=== PATIENT | female | born 1935 | race African-American/Black ===

== ENCOUNTER 2018-03-23 07:07 | Outpatient (CLI) | payer OTHER ==
[~2018-03-23 07:07] MED LIST: AMLODIPINE BES2.5 MG PO; CIPRO250 MG PO; COUMADIN4 MG PO; HYDROCHLOROTHIA25 MG PO; VASOTEC2.5 MG PO; VYTORIN 10-20 M1 TAB PO
== END 2018-03-23 07:13 | disposition home or self-care (01) ==
LOC: MAMO-SONO 07:07
DX: D24.1 Benign neoplasm of right breast (principal)

== ENCOUNTER 2018-10-05 08:08 | Outpatient (CLI) | payer OTHER | END 2018-10-05 08:11 | disposition home or self-care (01) | LOC: MAMO-SONO 08:08 | DX: Z12.31 Encounter for screening mammogram for malignant neoplasm of breast (principal); Z87.898 Personal history of other specified conditions; D24.1 Benign neoplasm of right breast ==

== ENCOUNTER 2018-11-30 09:04 | Emergency (ER) | payer OTHER ==
[~2018-11-30] VITALS: Ht 157.5 cm; Wt 97.1 kg
[2018-11-30] MEDS ORDERED: TOPROL XL50 MG PO (14:20)
== END 2018-11-30 14:47 | disposition home or self-care (01) ==
LOC: ER 09:04 → CPU-OBS 09:05 → ER 09:05
DX: I48.91 Unspecified atrial fibrillation (principal); R07.89 Other chest pain

== ENCOUNTER 2019-09-02 11:33 | Emergency (ER) | payer OTHER ==
[~2019-09-02] VITALS: Ht 162.6 cm; Wt 99.8 kg
[~2019-09-02 11:33] MED LIST changes: +TOPROL XL50 MG PO
== END 2019-09-03 18:35 | disposition home or self-care (01) ==
LOC: ER 11:33
DX: J43.8 Other emphysema (principal); J84.10 Pulmonary fibrosis, unspecified; R00.2 Palpitations; R09.02 Hypoxemia; R06.09 Other forms of dyspnea; R06.02 Shortness of breath; I27.29 Other secondary pulmonary hypertension

== ENCOUNTER 2020-04-05 10:25 | Emergency (ER) | payer OTHER ==
[~2020-04-05] VITALS: Ht 157.5 cm; Wt 90.7 kg
[~2020-04-05 10:25] MED LIST changes: +DOLOGEN CAPLET1 EACH PO; +TUSNEL LIQUID178 ML PO; +XOFLUZA40 MG PO; +ZITHROMAX500 MG PO
== END 2020-04-05 12:19 | disposition home or self-care (01) ==
LOC: ER 10:25
DX: J02.9 Acute pharyngitis, unspecified (principal)

== ENCOUNTER 2020-05-21 08:51 | Outpatient (CLI) | payer OTHER | END 2020-05-21 08:55 | disposition home or self-care (01) | LOC: SONOGRAMA 08:51 | PROVIDERS: ATTEND Pathology Anatomic Pathology | DX: E04.2 Nontoxic multinodular goiter (principal) ==

== ENCOUNTER 2020-06-09 09:20 | Emergency (ER) | payer OTHER ==
[~2020-06-09] VITALS: Ht 162.6 cm; Wt 98.0 kg
[2020-06-09] MEDS ORDERED: SYMBICORT 16010.2 GM IH (16:23)
[2020-06-09] MEDS ORDERED: ZITHROMAX500 MG PO (16:23)
[2020-06-09] MEDS ORDERED: TESSALON PERLE100 MG PO (16:23)
== END 2020-06-09 16:56 | disposition home or self-care (01) ==
LOC: ER 09:20
DX: U07.1 COVID-19 (principal); B34.9 Viral infection, unspecified

== ENCOUNTER 2020-11-29 09:18 | Inpatient (IN) | payer OTHER ==
[~2020-11-29] VITALS: Ht 162.6 cm; Wt 86.2 kg
[~2020-11-29 09:18] MED LIST changes: +SYMBICORT 16010.2 GM IH; +TESSALON PERLE100 MG PO
--- NOTE | 2020-11-29 10:00 | NUR ---
SE RECIBE FEMINA 84 YRS, ALERTA, ORIENTADA EN TIEMPO , LUGAR Y PERSONA. ACOMPANADA DE MARI HIJA REFIERE TENER PALPITACIONES DESDE EL MIERCOLES, FUE A MARI MEDICO PRIMARIO EL VIERNES EL CUAL REFIERE A ER, POR PULSO EN 156, LLEGA HOY CON HIJA SE REALIZA EVALUACION , EKG SE PRESENTA A PRANEETH.MELVINTA, SE UBICA EN AREA DE CHEST PAIN. EN MOMENTO DE RECONSILIACION DE MEDICAMENTOS PTE Y FAMILIAR REFIEREN QUE NO ESTA TOMANDO NINGUNO.PTE REFIERE NO JAMI POR NO TENER REFILL DISPONIBLE. SE NOTIFICA A . SE UBICA EN VIK #17 CON BARNDAS ELEVADAS , SE CONECTA A MONITOR CARDIACO Y OXIMETRIA DE PULSO SE ENTREGA PTE A KIN.
[2020-12-04] MEDS ORDERED: DILTIAZEM HCL30 MG PO (09:42)
[2020-12-04] MEDS ORDERED: DIGOXIN IV (09:42)
[2020-12-04] MEDS ORDERED: ELIQUIS5 MG PO (09:42)
== END 2020-12-04 11:30 | disposition home or self-care (01) | DRG 309 ==
LOC: ER 09:18 → MEDI 12:24
PROVIDERS: ADMIT Internal Medicine; ATTEND Internal Medicine
PROC: B24BZZZ Ultrasonography of Heart with Aorta (ICD-10-PCS; principal; 2020-11-29)
DX: I48.19 Other persistent atrial fibrillation (principal); J44.1 Chronic obstructive pulmonary disease with (acute) exacerbation; J84.10 Pulmonary fibrosis, unspecified; Z20.822 Contact with and (suspected) exposure to COVID-19; I35.8 Other nonrheumatic aortic valve disorders

== ENCOUNTER 2020-12-24 18:12 | Inpatient (IN) | payer OTHER ==
[~2020-12-24] VITALS: Ht 121.9 cm; Wt 5.0 kg
[~2020-12-24 18:12] MED LIST changes: +DIGOXIN IV; +DILTIAZEM HCL30 MG PO; +ELIQUIS5 MG PO
[2020-12-25] MEDS ORDERED: CANDESARTAN-HC1 EACH (08:16)
[2020-12-25] MEDS ORDERED: LEVALBUTEROL TA15 GM (08:16)
[2020-12-25] MEDS ORDERED: DOXAZOSIN MESYLA2 MG (08:16)
[2020-12-25] MEDS ORDERED: OMEPRAZOLE20 MG (08:16)
[2020-12-25] MEDS ORDERED: FUROSEMIDE20 MG (08:16)
[2020-12-25] MEDS ORDERED: SIMVASTATIN20 MG (08:17)
[2020-12-25] MEDS ORDERED: METOPROLOL SUCC25 MG (08:17)
[2020-12-25] MEDS ORDERED: DIGOXIN (08:20)
== END 2020-12-29 17:47 | disposition home or self-care (01) | DRG 310 ==
LOC: ER 18:12 → SEC-K 22:27 → MEDJ 12-25 16:52
PROVIDERS: ADMIT Internal Medicine; ATTEND Internal Medicine
PROC: 4A033R1 Measurement of Arterial Saturation, Peripheral, Percutaneous Approach (ICD-10-PCS; 2020-12-24)
PROC: 4A12X4Z Monitoring of Cardiac Electrical Activity, External Approach (ICD-10-PCS; principal; 2020-12-25)
PROC: B24BZZZ Ultrasonography of Heart with Aorta (ICD-10-PCS; 2020-12-26)
DX: I48.20 Chronic atrial fibrillation, unspecified (principal); I27.20 Pulmonary hypertension, unspecified; J43.9 Emphysema, unspecified; I35.0 Nonrheumatic aortic (valve) stenosis; J84.10 Pulmonary fibrosis, unspecified; Z79.01 Long term (current) use of anticoagulants; Z20.822 Contact with and (suspected) exposure to COVID-19

== ENCOUNTER 2024-05-16 16:35 | Inpatient (IN) | payer OTHER ==
[~2024-05-16] VITALS: Ht 157.5 cm; Wt 69.9 kg
[~2024-05-16 16:35] MED LIST changes: +CANDESARTAN-HC1 EACH; +CARAFATE1 GM PO; +DIGOXIN; +DOXAZOSIN MESYLA2 MG; +FUROSEMIDE20 MG; +FUROSEMIDE20 MG PO; +JARDIANCE10 MG PO; +LANOXIN125 MCG PO; +LEVALBUTEROL TA15 GM; +METOPROLOL SUCC25 MG; +OMEPRAZOLE20 MG; +SIMVASTATIN20 MG; +TOPROL XL25 M1 PO
--- NOTE | 2024-05-16 19:16 | NUR ---
SE RECIBE PACIENTE ALERTA Y ORIENTADA X3. LA MISMA REFIERE HACE ANDRA SEMANA COMENZAR CON FALTA DE AIRE Y HOY NO PODER RESPIRAR. PACIENTE REFIERE NO DOLOR DE PECHO NI OTRO SINTOMA. SE MIDEN S/V PACIENTE OXIGENANDO 91%. SE REALIZA EKG Y SE PRESENTA A PRANEETH. LA MISMA REFIER CONECTARLA A MONITOR CARDIACO.
[2024-05-16] MEDS ORDERED: 0.9 % SODIUM CHLORIDE 1,000 ML IV STA (20:11)
[2024-05-16] MEDS ORDERED: FUROsemide 40 MG/4 ML VIAL IV ONE (20:15)
--- NOTE | 2024-05-16 20:28 | NUR ---
PTE ALERTA Y ORIENTADA X3 SE LE ORIENTA SOBRE TX MEDICO LO CUAL REFIERE ENTENDER Y ACEPTAR. SE LE REALIZAN MUESTRAS DE LAB BAJO MEDIDAS ASEPTICAS. SE LE ADMINISTRA MEDICAMENTOS KEIRA ORDEN MEDICA SE NOTIFICA ESTIDIOS PENDIENTE
[2024-05-16 20:37] LABS: HEMATOCRIT 47.7 % (36.0-45.00); MEAN CELL VOLUME 97.2 fL (80.00-100.00); MEAN CORPUSCULAR HEMOGLOBIN 32.6 pg (27.00-32.0); MEAN CORPUSCULAR HGB CONC 33.5 g/dl (32.0-36.0); RED CELL DISTRIBUTION WIDTH 16.6 % (11.5-14.5)
[2024-05-16 20:42] LABS: PLATELET COUNT 110 K/uL (150-450)
[2024-05-16 21:18] LABS: CREATININE SERUM 0.83 mg/dL (0.55-1.02); GFR 65.03; POTASSIUM 3.76 mEq/L (3.5-5.1)
[2024-05-16 21:21] LABS: INR 1.5; PARTIAL THROMBOPLASTIN TIME 37.8 SECONDS (22.0-34.0)
[2024-05-16 21:55] LABS: ABG pCO2 55.2 mmHg (35-45)
[2024-05-16 21:56] LABS: ABG PO2 55.7 mmHg (80-100); BASE EXCESS 10.3 mmol/l; BICARBONATE 36.7 mmol/l (23-25); SaO2 90.6 %; Tco2 38.4 mmol/l; allen test SATISFACTORY; o2 21 %; puncture site RADIAL RIGHT
[2024-05-16 22:42] LABS: PROTHROMBIN TIME 15.3 SECONDS (9.0-11.5)
[2024-05-16] MEDS ORDERED: NITROGLYCERIN IN 5 % DEXTROSE 250 ML IV SCH (23:39)
[2024-05-16] MEDS ORDERED: ENOXAPARIN SODIUM 60 MG/0.6 ML SYRINGE SUBCUTANEO SCH (23:39)
[2024-05-16] MEDS ORDERED: ACETAMINOPHEN 500 MG GEL..CAP PO PRN (23:45)
[2024-05-17] MEDS ORDERED: IPRATROPIUM BROMIDE 0.5 MG/2.5 ML AMPUL.NEB IH SCH (01:00)
[2024-05-17] MEDS ORDERED: FUROsemide 20 MG/2 ML VIAL IV SCH (01:00)
[2024-05-17 01:37] LABS: PH,URINE 7.5 (5.0-8.0); URINE APPEARANCE Clear; URINE BACTERIA 20.1 uL (0.0-1933); URINE BILIRRUBIN Negative (NEGATIVE); URINE BLOOD Negative; URINE COLOR Yellow; URINE EPITHELIAL CELLS 4.3 uL (0.0-38.8); URINE GLUCOSE Negative (NEGATIVE); URINE LEUKOCYTE Trace; URINE NITRATE Negative; URINE PROTEIN Negative (NEGATIVE); URINE RBC 7.6 uL (0.0-20.8); URINE WBC 19.6 uL (0.0-23.2)
[2024-05-17] MEDS ORDERED: NITROGLYCERIN IN 5 % DEXTROSE 250 ML IV SCH (06:15)
[2024-05-17] MEDS ORDERED: DIGOXIN 0.125 MG TABLET PO SCH (09:00)
[2024-05-17 09:04] LABS: ABG PH 7.434 (7.35-7.45); ABG pCO2 59.2 mmHg (35-45)
[2024-05-17 09:05] LABS: ABG PO2 272.6 mmHg (80-100); BASE EXCESS 11.8 mmol/l; BICARBONATE 38.7 mmol/l (23-25); SaO2 99.9 %; Tco2 40.6 mmol/l
[2024-05-17 09:08] LABS: allen test SATISFACTORY; o2 60 %; puncture site RADIAL RIGHT
[2024-05-18 09:33] LABS: ABG PH 7.406 (7.35-7.45); ABG PO2 273.6 mmHg (80-100); ABG pCO2 63.3 mmHg (35-45); BASE EXCESS 11.3 mmol/l; BICARBONATE 38.9 mmol/l (23-25); SaO2 99.9 %; Tco2 40.9 mmol/l
[2024-05-18 09:34] LABS: allen test SATISFACTORY; o2 60 %; puncture site RADIAL LEFT
[2024-05-18] MEDS ORDERED: METHYLPREDNISOLONE SOD SUCC 40 MG VIAL IV SCH (17:00)
[2024-05-18] MEDS ORDERED: METOPROLOL SUCCINATE 25 MG TAB.SR.24H PO STA (18:12)
[2024-05-18] MEDS ORDERED: METOPROLOL SUCCINATE 25 MG TAB.SR.24H PO SCH ×2 (18:13→19:49)
[2024-05-18] MEDS ORDERED: METOPROLOL SUCCINATE 25 MG TAB.SR.24H PO ONE (18:15)
[2024-05-18] MEDS ORDERED: METOPROLOL TARTRATE 25 MG TABLET PO SCH (19:48)
[2024-05-19] MEDS ORDERED: FUROsemide 20 MG/2 ML VIAL IV SCH (01:00)
[2024-05-19] MEDS ORDERED: FUROsemide 40 MG/4 ML VIAL IV SCH (09:00)
[2024-05-19] MEDS ORDERED: METHYLPREDNISOLONE SOD SUCC 40 MG VIAL IV SCH (17:00)
[2024-05-19] MEDS ORDERED: PHENYLEPHRINE HCL 10 MG/ML AMPUL IV SCH (17:30)
[2024-05-20] MEDS ORDERED: FUROsemide 20 MG/2 ML VIAL IV SCH (17:00)
== END 2024-05-22 17:28 | disposition home or self-care (01) | DRG 291 ==
LOC: ER 16:36 → ICU-2 23:40 → ICU 05-17 13:36 → MEDI 05-20 18:20
PROVIDERS: Emergency Medicine; General Practice; ADMIT Internal Medicine; ATTEND Internal Medicine
PROC: B24BZZZ Ultrasonography of Heart with Aorta (ICD-10-PCS; principal; 2024-05-16)
PROC: 5A09357 Assistance with Respiratory Ventilation, Less than 24 Consecutive Hours, Continuous Positive Airway Pressure (ICD-10-PCS; 2024-05-16)
PROC: BW24YZZ Computerized Tomography (CT Scan) of Chest and Abdomen using Other Contrast (ICD-10-PCS; 2024-05-18)
PROC: B54DZZZ Ultrasonography of Bilateral Lower Extremity Veins (ICD-10-PCS; 2024-05-18)
PROC: 4A12X4Z Monitoring of Cardiac Electrical Activity, External Approach (ICD-10-PCS; 2024-05-20)
DX: I11.0 Hypertensive heart disease with heart failure (principal); I50.33 Acute on chronic diastolic (congestive) heart failure; J96.01 Acute respiratory failure with hypoxia; J96.02 Acute respiratory failure with hypercapnia; N17.9 Acute kidney failure, unspecified; J44.1 Chronic obstructive pulmonary disease with (acute) exacerbation; I48.91 Unspecified atrial fibrillation; J84.10 Pulmonary fibrosis, unspecified; I27.20 Pulmonary hypertension, unspecified; D86.0 Sarcoidosis of lung

== ENCOUNTER 2024-08-25 14:30 | Emergency (ER) | payer OTHER ==
[~2024-08-25] VITALS: Ht 152.4 cm; Wt 63.5 kg
[2024-08-25 18:11] LABS: HEMATOCRIT 43.3 % (36.0-45.00); HEMOGLOBIN 14.4 g/dL (12.0-15.00); MEAN CELL VOLUME 102.4 fL (80.00-100.00); MEAN CORPUSCULAR HGB CONC 33.1 g/dl (32.0-36.0); PLATELET COUNT 158 K/uL (150-450); RED BLOOD COUNT 4.23 M/uL (4.00-6.00)
[2024-08-25 18:34] LABS: ALBUMIN 2.5 gm/dL (3.4-5.0); BILIRUBIN TOTAL 0.98 mg/dL (0.3-1.2); CALCIUM 9.1 mg/dL (8.5-10.1); CREATININE SERUM 0.76 mg/dL (0.55-1.02); GFR 71.99; GLOBULINA 5.2 G/DL (2.4-3.5); POTASSIUM 4.04 mEq/L (3.5-5.1); TOTAL PROTEIN 7.7 gm/dL (6.4-8.2)
[2024-08-25 19:20] LABS: ABG PH 7.408 (7.35-7.45); ABG PO2 59.3 mmHg (80-100); BASE EXCESS 4.9 mmol/l; SaO2 90.9 %
[2024-08-25 19:21] LABS: BICARBONATE 30.8 mmol/l (23-25); Tco2 32.4 mmol/l; allen test SATISFACTORY; o2 21 %; puncture site RADIAL RIGHT
== END 2024-08-25 20:44 | disposition home or self-care (01) ==
LOC: ER 14:31
DX: D86.9 Sarcoidosis, unspecified (principal); Z88.8 Allergy status to other drugs, medicaments and biological substances

== ENCOUNTER 2024-09-14 18:19 | Emergency (ER) | payer OTHER ==
[~2024-09-14] VITALS: Ht 157.5 cm; Wt 58.1 kg
[2024-09-14] MEDS ORDERED: KETOROLAC TROMETHAMINE 15 MG VIAL IM STA (19:55)
== END 2024-09-14 20:14 | disposition home or self-care (01) ==
LOC: ER 18:21
DX: R05.8 Other specified cough (principal); D86.89 Sarcoidosis of other sites; Z88.8 Allergy status to other drugs, medicaments and biological substances; Z20.822 Contact with and (suspected) exposure to COVID-19
CPT/HCPCS: 36415; 96372; 99282; J1885

== ENCOUNTER 2024-09-24 07:54 | Emergency (ER) | payer OTHER ==
[~2024-09-24] VITALS: Ht 152.4 cm; Wt 68.0 kg
[2024-09-24] MEDS ORDERED: KETOROLAC TROMETHAMINE 30 MG VIAL IM STA (09:10)
[2024-09-24 09:57] LABS: CALCIUM 9.5 mg/dL (8.5-10.1); CREATININE SERUM 1.01 mg/dL (0.55-1.02); GFR 51.85; POTASSIUM 4.6 mEq/L (3.5-5.1)
[2024-09-24 10:07] LABS: HEMATOCRIT 48.1 % (36.0-45.00); HEMOGLOBIN 15.7 g/dL (12.0-15.00); MEAN CELL VOLUME 102.9 fL (80.00-100.00); MEAN CORPUSCULAR HEMOGLOBIN 33.6 pg (27.00-32.0); MEAN CORPUSCULAR HGB CONC 32.7 g/dl (32.0-36.0); PLATELET COUNT 134 K/uL (150-450); RED BLOOD COUNT 4.67 M/uL (4.00-6.00); RED CELL DISTRIBUTION WIDTH 15.3 % (11.5-14.5)
[2024-09-24 10:37] LABS: URINE APPEARANCE Cloudy; URINE BILIRRUBIN Negative (NEGATIVE); URINE COLOR Yellow; URINE GLUCOSE Negative (NEGATIVE); URINE KETONE Negative (NEGATIVE); URINE LEUKOCYTE Moderate; URINE NITRATE Negative
[2024-09-24 10:40] LABS: URINE EPITHELIAL CELLS 4.3 uL (0.0-38.8); URINE RBC 24.7 uL (0.0-20.8); URINE WBC 454.3 uL (0.0-23.2)
[2024-09-24 10:49] LABS: URINE BACTERIA > 9821.2 uL (0.0-1933); URINE PROTEIN 100 (NEGATIVE)
[2024-09-24 10:50] LABS: URINE BLOOD TRACES
[2024-09-24] MEDS ORDERED: CEFTRIAXONE SODIUM 1,000 MG VIAL IV STA (10:56)
== END 2024-09-24 11:10 | disposition home or self-care (01) ==
LOC: ER 07:56
PROVIDERS: General Practice
DX: R10.9 Unspecified abdominal pain (principal); D86.89 Sarcoidosis of other sites; I50.9 Heart failure, unspecified; Z88.8 Allergy status to other drugs, medicaments and biological substances
CPT/HCPCS: 36415; 96365; 96372; 99282; J0696; J1885

== ENCOUNTER 2024-10-17 07:27 | Inpatient (IN) | payer OTHER ==
[~2024-10-17] VITALS: Ht 170.2 cm; Wt 81.6 kg
--- NOTE | 2024-10-17 07:50 | NUR ---
SE RECIBE PTE ALERTA Y ORIENTADA ACOMPANADA DE FAMILIAR LA CUAL REFIERE TRAER A PTE POR DIFICULTAD RESPIRATORIA DESDE ANITA Y MOLESTIA AL ORINAR. SE MIDEN S/V A PTE Y SE REALIZA EKG. PTE SE UBICA EN UNIDAD DE CRITICO Y SE CONECTA A MONITOR CARDIACO CON OXIMETRIA.
[2024-10-17] MEDS ORDERED: FUROsemide 40 MG/4 ML VIAL IV STA (08:06)
[2024-10-17] MEDS ORDERED: NITROGLYCERIN 250 ML IV SCH (08:15)
[2024-10-17 08:51] LABS: HEMATOCRIT 49.2 % (36.0-45.00); HEMOGLOBIN 16.4 g/dL (12.0-15.00); MEAN CELL VOLUME 99.9 fL (80.00-100.00); MEAN CORPUSCULAR HEMOGLOBIN 33.3 pg (27.00-32.0); MEAN CORPUSCULAR HGB CONC 33.4 g/dl (32.0-36.0); PLATELET COUNT 132 K/uL (150-450); RED BLOOD COUNT 4.93 M/uL (4.00-6.00); RED CELL DISTRIBUTION WIDTH 15.3 % (11.5-14.5)
--- NOTE | 2024-10-17 08:54 | NUR ---
SE RECIBE PTE EN AREA DE CRITICO #3 SE CONECTA A MONITOR CARDIACO Y OXIMETRIA DE PULSO CONTINUA. SE ORIENTA FAMILIAR Y PTE SOBRE TX MEDICO Y REFIEREN ENTENDER. SE CANALIZA X2 EN BRAZO IZQ, AREA PATENTE Y FAHEEM DE EDEMA. SE COLECTAN MUESTRAS DE LAB BAJO MEDIDAS ASEPTICAS. SE ADMINISTRA MED KEIRA ORDEN MEDICA. SE REALIZA ABG, Y CHEST PORTABLE. SE COLOCA HICKMAN A GRAVEDAD, BAJO MEDIDAS ESTERILES. HIJA DE PACIENTE FIRMA DNI + DNR, SE COLOCA EN EXPEDIENTE CLINICO. PTE BAJO OBSERVACION POR CAMVIOS SIGNIFICATIVOS.
[2024-10-17 09:13] LABS: INR 1.65; PARTIAL THROMBOPLASTIN TIME 33.2 SECONDS (22.0-34.0)
[2024-10-17 09:16] LABS: PROTHROMBIN TIME 17.3 SECONDS (9.0-11.5)
[2024-10-17 09:26] LABS: ALBUMIN 2.5 gm/dL (3.4-5.0); BILIRUBIN TOTAL 1.89 mg/dL (0.3-1.2); CALCIUM 9.2 mg/dL (8.5-10.1); CREATININE SERUM 1.35 mg/dL (0.55-1.02); GFR 37.09; POTASSIUM 4.49 mEq/L (3.5-5.1); TOTAL PROTEIN 7.5 gm/dL (6.4-8.2)
[2024-10-17] MEDS ORDERED: NITROGLYCERIN IN 5 % DEXTROSE 250 ML IV SCH (09:45)
[2024-10-17 09:50] LABS: PH,URINE 5.5 (5.0-8.0); URINE APPEARANCE Cloudy; URINE BACTERIA 331.6 uL (0.0-1933); URINE BILIRRUBIN Small (NEGATIVE); URINE BLOOD Negative; URINE CAST > 21.83 uL (0.0-1.40); URINE COLOR Dark Yellow; URINE EPITHELIAL CELLS 33.8 uL (0.0-38.8); URINE GLUCOSE >=1000 MG/DL (NEGATIVE); URINE KETONE Trace (NEGATIVE); URINE LEUKOCYTE Moderate; URINE NITRATE Negative; URINE PROTEIN 100 (NEGATIVE); URINE RBC 22.8 uL (0.0-20.8); URINE WBC 521.8 uL (0.0-23.2)
--- NOTE | 2024-10-17 13:26 | NUR ---
PACIENTE ES CONSULTADA CON MEDICINA INTERNA CON EL DR. ZAMZAM EUCEDA, AL MOMENTO CONTINUA CON MONITOREO CARDIACO Y TRIDIL 50 MG/250 ML A 2 ML/HR. SE MATIENE BAJO OBSERVACION POR CAMBIOS SIGNIFICATIVOS.
--- NOTE | 2024-10-17 15:20 | NUR ---
SE RECIBE PTE ALERTA Y ORIENTADA X3. EN CAMA BAJA CON BARANDAS ELEVADAS POR SEGURIDAD. CONECTADA A MONITOR CARDIACO Y OXIMETRIA DE PULSO CONTINUA. CANALIZADA X2 EN BRAZO, PATENTES, FAHEEM DE EDEMA Y ERITEMA, RECIBIENDO TRIDIL 50MG/250ML A 2MLS/HR POR ANDRA DE ELLAS. HICKMAN DRENANDO A GRAVEDAD, ORINA AMARILLO INTENSO. PEND CONSULTA
[2024-10-17 17:49] VITALS: BP 98/64
[2024-10-17] MEDS ORDERED: IPRATROPIUM BROMIDE 0.5 MG/2.5 ML AMPUL.NEB IH SCH (17:57)
[2024-10-17] MEDS ORDERED: ENOXAPARIN SODIUM 80 MG/0.8 ML SYRINGE SUBCUTANEO SCH (18:01)
[2024-10-17] MEDS ORDERED: ACETAMINOPHEN 500 MG GEL..CAP PO PRN (18:15)
[2024-10-17] MEDS ORDERED: CEFTRIAXONE SODIUM 2,000 MG in 0.9 % SODIUM CHLORIDE 100 ML IV SCH (18:15)
[2024-10-17] MEDS ORDERED: AZITHROMYCIN 500 MG in DEXTROSE 5 % IN WATER 250 ML IV SCH (18:16)
[2024-10-17 20:16] VITALS: BP 119/90; O2SAT 99
[2024-10-17] MEDS ORDERED: FUROsemide 20 MG/2 ML VIAL IV SCH (21:00)
[2024-10-17 22:17] LABS: ABG PH 7.424 (7.35-7.45); ABG PO2 107.6 mmHg (80-100); ABG pCO2 46.9 mmHg (35-45); BASE EXCESS 4.7 mmol/l; SaO2 98.3 %; Tco2 31.5 mmol/l
[2024-10-17 22:18] LABS: allen test SATISFACTORY; o2 28 %; puncture site RADIAL RIGHT
[2024-10-17 23:00] VITALS: BP 100/62; O2SAT 100
[2024-10-18] VITALS (16 sets, daily range): BP systolic 65–126; BP diastolic 45–95; O2SAT 95–100
[2024-10-18] MEDS ORDERED: FAMOTIDINE/PF 20 MG in 0.9 % SODIUM CHLORIDE 8 ML IV PUSH SCH (09:00)
[2024-10-18] MEDS ORDERED: DIGOXIN 0.125 MG TABLET PO SCH (09:00)
[2024-10-18] MEDS ORDERED: AZITHROMYCIN 500 MG VIAL IV SCH (09:00)
[2024-10-18 11:26] LABS: ABG PH 7.359 (7.35-7.45); ABG PO2 69.6 mmHg (80-100); ABG pCO2 41.8 mmHg (35-45); BASE EXCESS -2.3 mmol/l; SaO2 92.7 %; Tco2 24.3 mmol/l; o2 50 %
[2024-10-18 11:27] LABS: allen test SATISFACTORY; puncture site RADIAL RIGHT
[2024-10-18 15:51] LABS: ABG PH 7.361 (7.35-7.45); ABG PO2 292.5 mmHg (80-100); ABG pCO2 49.9 mmHg (35-45); BASE EXCESS 1.3 mmol/l; BICARBONATE 27.6 mmol/l (23-25); SaO2 99.9 %; Tco2 29.2 mmol/l; allen test NO SATISFACTORY; o2 100 %; puncture site RADIAL RIGHT
[2024-10-18] MEDS ORDERED: LACTOBACILLUS ACIDOPHILUS 1 CAP CAP PO SCH (17:00)
[2024-10-18] MEDS ORDERED: LINEZOLID IN DEXTROSE 5% 600 MG/300 ML PIGGYBAG IV SCH (17:00)
[2024-10-18] MEDS ORDERED: NOREPINEPHRINE BITARTRATE 8 MG in DEXTROSE 5 % IN WATER 250 ML IV SCH (19:30)
[2024-10-18] MEDS ORDERED: CEFEPIME HCL 1,000 MG VIAL IV SCH (21:00)
[2024-10-18] MEDS ORDERED: FUROsemide 20 MG/2 ML VIAL IV ONE (23:15)
[2024-10-18] MEDS ORDERED: AMIODARONE HCL 50 MG/ML AMPUL IV SCH (23:30)
[2024-10-19] VITALS (23 sets, daily range): BP systolic 74–156; BP diastolic 55–87; O2SAT 94–96
[2024-10-19 07:55] LABS: HEMATOCRIT 52.5 % (36.0-45.00); HEMOGLOBIN 17.1 g/dL (12.0-15.00); MEAN CELL VOLUME 100.8 fL (80.00-100.00); MEAN CORPUSCULAR HEMOGLOBIN 32.8 pg (27.00-32.0); MEAN CORPUSCULAR HGB CONC 32.5 g/dl (32.0-36.0); RED CELL DISTRIBUTION WIDTH 15.8 % (11.5-14.5)
[2024-10-19 07:56] LABS: PLATELET COUNT 65 K/uL (150-450)
[2024-10-19 09:41] LABS: ALBUMIN 2.2 gm/dL (3.4-5.0); BILIRUBIN TOTAL 2.21 mg/dL (0.3-1.2); CALCIUM 8.8 mg/dL (8.5-10.1); CREATININE SERUM 2.12 mg/dL (0.55-1.02); GFR 22.04; GLOBULINA 4.5 G/DL (2.4-3.5); POTASSIUM 4.23 mEq/L (3.5-5.1); TOTAL PROTEIN 6.7 gm/dL (6.4-8.2)
[2024-10-19 11:07] LABS: ABG PH 7.345 (7.35-7.45); ABG PO2 95.4 mmHg (80-100); ABG pCO2 55.5 mmHg (35-45); BASE EXCESS 2.6 mmol/l; BICARBONATE 29.6 mmol/l (23-25); Tco2 31.3 mmol/l; allen test SATISFACTORY; puncture site RADIAL RIGHT
[2024-10-19 11:08] LABS: o2 60 %
[2024-10-19] MEDS ORDERED: DOPamine HCL IN DEXTROSE 5 % 250 ML IV SCH (20:00)
[2024-10-19] MEDS ORDERED: FUROsemide 20 MG/2 ML VIAL IV ONE (21:30)
[2024-10-20] VITALS (22 sets, daily range): BP systolic 62–146; BP diastolic 37–110; O2SAT 94–100
[2024-10-20 08:02] LABS: ALBUMIN 2.1 gm/dL (3.4-5.0); BILIRUBIN TOTAL 1.87 mg/dL (0.3-1.2); CALCIUM 8.6 mg/dL (8.5-10.1); CREATININE SERUM 2.2 mg/dL (0.55-1.02); GFR 21.11; GLOBULINA 3.9 G/DL (2.4-3.5); POTASSIUM 4.33 mEq/L (3.5-5.1)
[2024-10-20 08:09] LABS: HEMATOCRIT 48.5 % (36.0-45.00); HEMOGLOBIN 16.3 g/dL (12.0-15.00); MEAN CELL VOLUME 99.8 fL (80.00-100.00); MEAN CORPUSCULAR HEMOGLOBIN 33.6 pg (27.00-32.0); MEAN CORPUSCULAR HGB CONC 33.7 g/dl (32.0-36.0); RED BLOOD COUNT 4.86 M/uL (4.00-6.00); RED CELL DISTRIBUTION WIDTH 16.3 % (11.5-14.5)
[2024-10-20 08:19] LABS: PLATELET COUNT 16 K/uL (150-450)
[2024-10-20] MEDS ORDERED: ENOXAPARIN SODIUM 80 MG/0.8 ML SYRINGE SUBCUTANEO SCH (09:00)
[2024-10-20] MEDS ORDERED: PANTOPRAZOLE SODIUM 40 MG/VIAL VIAL IV SCH (09:00)
[2024-10-20 11:55] LABS: ABG PH 7.326 (7.35-7.45); ABG PO2 80.9 mmHg (80-100); ABG pCO2 50.9 mmHg (35-45); BASE EXCESS -0.7 mmol/l; SaO2 94.7 %; Tco2 27.6 mmol/l; allen test SATISFACTORY; o2 50 %; puncture site RADIAL RIGHT
[2024-10-20] MEDS ORDERED: NOREPINEPHRINE BITARTRATE 8 MG in DEXTROSE 5 % IN WATER 250 ML IV SCH (15:30)
[2024-10-20] MEDS ORDERED: METHYLPREDNISOLONE SOD SUCC 40 MG VIAL IV SCH (20:59)
[2024-10-21] VITALS: BP 110/96
[2024-10-21 02:00] VITALS: BP 96/70
[2024-10-21 04:00] VITALS: BP 92/81
== END 2024-10-21 05:18 | disposition expired ==
LOC: ER 07:29 → ICU-2 21:03 → ICU 10-19 21:59
PROVIDERS: General Practice; Internal Medicine Cardiovascular Disease; Internal Medicine Geriatric Medicine; ADMIT Internal Medicine; ATTEND Internal Medicine
PROC: BW24ZZZ Computerized Tomography (CT Scan) of Chest and Abdomen (ICD-10-PCS; 2024-10-17)
PROC: B24BZZZ Ultrasonography of Heart with Aorta (ICD-10-PCS; 2024-10-18)
PROC: BW24ZZZ Computerized Tomography (CT Scan) of Chest and Abdomen (ICD-10-PCS; 2024-10-19)
PROC: 02HV33Z Insertion of Infusion Device into Superior Vena Cava, Percutaneous Approach (ICD-10-PCS; principal; 2024-10-20)
DX: I13.0 Hypertensive heart and chronic kidney disease with heart failure and stage 1 through stage 4 chronic kidney disease, or unspecified chronic kidney disease (principal); A41.9 Sepsis, unspecified organism; I21.A1 Myocardial infarction type 2; I50.23 Acute on chronic systolic (congestive) heart failure; J18.9 Pneumonia, unspecified organism; J96.01 Acute respiratory failure with hypoxia; R65.21 Severe sepsis with septic shock; N17.9 Acute kidney failure, unspecified; N39.0 Urinary tract infection, site not specified; J44.1 Chronic obstructive pulmonary disease with (acute) exacerbation; I48.20 Chronic atrial fibrillation, unspecified; N18.9 Chronic kidney disease, unspecified; D69.6 Thrombocytopenia, unspecified; I95.9 Hypotension, unspecified; R00.1 Bradycardia, unspecified; J84.10 Pulmonary fibrosis, unspecified; E11.65 Type 2 diabetes mellitus with hyperglycemia; Z79.4 Long term (current) use of insulin; I27.20 Pulmonary hypertension, unspecified; Z74.01 Bed confinement status